=== PATIENT | male | born 1985 | race Hispanic/Latino ===

== ENCOUNTER 2017-07-03 08:40 | Emergency (ER) | payer OTHER ==
[2017-07-03 08:55] VITALS: BMI 24.1
[2017-07-03] MEDS ORDERED: Sodium Chloride 0.9% 1,000 ML IV STA (09:28)
[2017-07-03] MEDS ORDERED: DiphenhydrAMINE 50 mg/ml Inj IV STA (09:29)
[2017-07-03] MEDS ORDERED: DiphenhydrAMINE 50 mg/ml Inj ONE (09:37)
--- NOTE | 2017-07-03 09:52 | ED PDOC ---
HPI: Abdomen Time Seen by Provider: 07/03/17 09:14 Chief Complaint (Nursing): GI Problem Chief Complaint (Provider): Vomiting History Per: Patient History/Exam Limitations: no limitations Onset/Duration Of Symptoms: Hrs (03:30 today) Current Symptoms Are (Timing): Still Present Context: Food Associated Symptoms: Vomiting, Diarrhea. denies: Fever, Chills Additional Complaint(s): Tanvir Stockton is a 32 year old male, with no significant past medical history, who presents to the emergency department complaining of multiple episodes of vomiting and diarrhea onset since 03:30 today. Patient reports he is unable to tolerate liquids or food, last vomiting episodes was prior to arrival. Patient believes it might be food poisoning after he ate meatballs earlier in the day yesterday. He denies any current abdominal pain, fever, chills or other medical complaints. PMD: None provided. Past Medical History Reviewed: Historical Data, Nursing Documentation, Vital Signs Vital Signs: Last Vital Signs Temp 99.1 F 07/03/17 09:03 Pulse 96 H 07/03/17 09:03 Resp 20 07/03/17 09:03 BP 105/62 07/03/17 09:03 Pulse Ox 99 07/03/17 12:10 - Medical History PMH: No Chronic Diseases - Surgical History Surgical History: No Surg Hx - Family History Family History: States: No Known Family Hx - Social History Current smoker - smoking cessation education provided: No Alcohol: Social Drugs: Denies - Home Medications Home Medications: Ambulatory Orders Medication Instructions Recorded Ondansetron ODT [Zofran ODT] 4 mg PO Q8 PRN #12 odt 07/03/17 - Allergies Allergies/Adverse Reactions: Allergies Allergy/AdvReac Type Severity Reaction Status Date / Time No Known Allergies Allergy Verified 07/03/17 09:03 Review of Systems ROS Statement: Except As Marked, All Systems Reviewed And Found Negative Constitutional: Negative for: Fever, Chills Gastrointestinal: Positive for: Vomiting, Diarrhea. Negative for: Abdominal Pain Physical Exam - Reviewed Nursing Documentation Reviewed: Yes Vital Signs Reviewed: Yes - Physical Exam Appears: Positive for: Non-toxic, No Acute Distress, Uncomfortable Head Exam: Positive for: ATRAUMATIC, NORMOCEPHALIC Skin: Positive for: Normal Color, Warm, Dry Eye Exam: Positive for: Normal appearance, EOMI, PERRL ENT: Positive for: Other (dry mucous membranes) Neck: Positive for: Painless ROM Cardiovascular/Chest: Positive for: Regular Rate, Rhythm. Negative for: Murmur Respiratory: Positive for: Normal Breath Sounds. Negative for: Respiratory Distress Gastrointestinal/Abdominal: Positive for: Normal Exam, Soft. Negative for: Tenderness Back: Positive for: Normal Inspection. Negative for: L CVA Tenderness, R CVA Tenderness, Vertebral Tenderness Extremity: Positive for: Normal ROM (upper and lower). Negative for: Deformity , Swelling Neurologic/Psych: Positive for: Alert, Oriented. Negative for: Motor/Sensory Deficits - Laboratory Results Result Diagrams: 07/03/17 09:45 07/03/17 09:45 - ECG O2 Sat by Pulse Oximetry: 99 (RA) Pulse Ox Interpretation: Normal - Progress Re-evaluation Time: 12:05 Condition: Re-examined, Improved Medical Decision Making Medical Decision Making: Initial Impression: Vomiting & diarrhea. Differential includes: food poisoning, viral gastroenteritis Initial Plan: --CMP --Lipase --CBC w/ differential --Benadryl 25 mg IV --Sodium Chloride 1,000 ml IV 1,000 mls/hr --Reglan 10 mg IVP --Reevaluation 12:05 -Patient reports significant improvement, no nausea or vomit. -Reviewed labs, no significant abnormalities. Patient tolerated PO in ED and will like to go home. Scribe Attestation: Documented by Kaden Blanco, acting as a scribe for Kelsi Kim MD Provider Scribe Attestation: All medical record entries made by the Scribe were at my direction and personally dictated by me. I have reviewed the chart and agree that the record accurately reflects my personal performance of the history, physical exam, medical decision making, and the department course for this patient. I have also personally directed, reviewed, and agree with the discharge instructions and disposition. Disposition - Clinical Impression Clinical Impression: Gastroenteritis - Patient ED Disposition Is Patient to be Admitted: No Doctor Will See Patient In The: Office Counseled Patient/Family Regarding: Studies Performed, Diagnosis, Need For Followup - Disposition Referrals: [facility] [Outside] Disposition: Routine/Home Disposition Time: 12:06 Condition: IMPROVED Additional Instructions: Drink plenty of fluids. Return for worsening. Follow up with your PCP in 2-3 days. Prescriptions: Ondansetron ODT [Zofran ODT] 4 mg PO Q8 PRN #12 odt PRN Reason: Nausea/Vomiting Instructions: Viral Gastroenteritis, Adult (DC) Forms: [facility] ED School/Work Excuse
[2017-07-03 10:10] LABS: BASO % 0.1 % (0.0-2.0); EOS % 0.1 % (0.0-4.0); HEMOGLOBIN 17.2 g/dL (12.0-18.0); LYMPH # 0.3 K/uL (1.0-4.3); LYMPH % 2.4 % (20.0-40.0); MEAN CELL VOLUME 88.9 fl (80.0-94.0); MEAN CORPUSCULAR HEMOGLOBIN 30.9 pg (27.0-31.0); MEAN CORPUSCULAR HGB CONC 34.8 g/dL (33.0-37.0); MEAN PLATELET VOLUME 8.3 fl (7.2-11.7); MONO % 7.7 % (0.0-10.0); NEUT # 11.1 K/uL (1.8-7.0); NEUT % 89.7 % (50.0-75.0); PLATELET COUNT 202 K/uL (130-400); RBC 5.56 Mil/uL (4.40-5.90); RED CELL DISTRIBUTION WIDTH 12.4 % (11.5-14.5); WHITE BLOOD COUNT 12.4 K/uL (4.8-10.8)
[2017-07-03 10:16] LABS: ALB/GLOB RATIO 1.5 (1.0-2.1); ALBUMIN 4.5 g/dL (3.5-5.0); ALT/SGPT 38 U/L (21-72); AST/SGOT 28 U/L (17-59); BLOOD UREA NITROGEN 20 mg/dl (9-20); CALCIUM 9.7 mg/dL (8.4-10.2); GFR AFRICAN-AMERICAN > 60; GFR NON-AFRICAN AMERICAN > 60; LIPASE 72 U/L (23-300)
[2017-07-03 12:31] VITALS: BP 112/64; PULSE 85; RESP 16; TEMP 98.4; O2SAT 95
[2017-07-03 12:46] LABS: BANDS 7 % (0-2); LYMPHOCYTE 7 % (20-50); MONOCYTE 13 % (0-10); NEUTROPHIL 73 % (42-75); PLATELET ESTIMATE NORMAL (NORMAL); TOTAL CELLS COUNTED 100
== END 2017-07-03 12:31 | disposition home or self-care (01) ==
LOC: H.ER 08:40
DX: K52.9 Noninfective gastroenteritis and colitis, unspecified (principal)
CPT/HCPCS: 80053; 83690; 85025; 96361; 96374; 96375; 99283; J1200; J2765; J7040